=== PATIENT | male | born 1995 | race Caucasian/White ===

== ENCOUNTER 2018-05-22 02:36 | Emergency (ER) | payer MEDICAID, OTHER ==
[~2018-05-22] VITALS: Ht 167.6 cm; Wt 63.6 kg
[~2018-05-22 02:36] MED LIST: CEPH-443 PO; IBUP-1542 PO
[2018-05-22 02:41] VITALS: Ht 167.6 cm; Wt 63.6 kg
[2018-05-22] MEDS ORDERED: SOD CHLORIDE 0.9% 1,000 ML IV STA (03:27)
[2018-05-22] MEDS ORDERED: ONDANSETRON 4 MG INJ IV STA (03:27)
[2018-05-22] MEDS ORDERED: morphine 4 MG/ML VIAL IV STA (03:27)
[2018-05-22] MEDS ORDERED: HYDR-4011 PO (04:53)
[2018-05-22] MEDS ORDERED: ONDA4TAB14 PO (04:53)
--- NOTE | 2018-05-22 05:06 | ERD ---
ER Documentation Chief Complaint Chief Complaint abdominal pain x 30 minutes HPI 23-year-old male patient with no significant past medical history presents to ED complaining of abdominal pain 30 minutes prior to arrival. Patient reports that he has normal daily bowel movements. States that he ate pizza, and this pain exacerbated. Reports that his pain is mainly in the right and left upper quadrant region. Reports that he has never had this pain. She rates his pain a 9 out of 10 describes his pain as sharp. Reports he has some nausea.Denies any chest pain, shortness of breath, wheezing, fever, chills, diarrhea, pain, dy suria, vomiting, constipation. ROS All systems reviewed and are negative except as per history of present illness. Medications Home Meds Active Scripts Ondansetron (Ondansetron Odt) 4 Mg Tab.rapdis, 4 MG PO Q6H PRN for NAUSEA AND/OR VOMITING, #10 TAB Prov:DIAMOND PHOENIX PA-C 05/22/18 Hydrocodone/Acetaminophen ([place] 5-325 Tablet) 1 Each Tablet, 1 TAB PO Q6H PRN for PAIN, #7 TAB Prov:DIAMOND PHOENIX PA-C 05/22/18 Cephalexin* (Keflex*) 500 Mg Capsule, 500 MG PO QID for 10 Days, CAP Prov:KOLTON RAYO NP 02/28/15 Ibuprofen* (Ibuprofen*) 600 Mg Tablet, 600 MG PO Q6H PRN for PA, #30 TAB Prov:KOLTON RAYO NP 02/28/15 Allergies Allergies: Coded Allergies: No Known Allergy (Unverified , 05/22/18) PMhx/Soc History of Surgery: No Anesthesia Reaction: No Hx Neurological Disorder: No Hx Respiratory Disorders: No Hx Cardiac Disorders: No Hx Psychiatric Problems: No Hx Miscellaneous Medical Probl: No Hx Alcohol Use: Yes (Occasional) Hx Substance Use: No Hx Tobacco Use: No Smoking Status: Never smoker FmHx Family History: No diabetes, No coronary disease Physical Exam Vitals Vital Signs Date Temp Pulse Resp B/P (MAP) Pulse Ox O2 O2 Flow FiO2 Time Delivery Rate 05/22/18 97.1 61 18 146/73 100 02:41 (97) Physical Exam Const: [id number], well-nourished. In no acute distress. Head: Atraumatic, normocephalic Eyes: Normal Conjunctiva without injection. No purulent discharge. ENT: Normal external ear, nose. Moist oropharynx without tonsillar exudates. Non-erythematous pharynx. Uvula midline. No drooling. No trismus. Neck: No cervical midline tenderness. Full range of motion. No meningismus. No cervical lymphadenopathy. No JVD. Resp: Clear to auscultation bilaterally. No wheezing, rhonchi, rales, or crackles. No accessory muscle use. No retractions. Cardio: Regular rate and rhythm. No murmurs, rubs or gallops. Abd: Soft, right upper quadrant and left upper quadrant tenderness, non distended. Normal bowel sounds. No palpable masses. No rebound tenderness. No guarding. Negative McBurney's point. Negative psoas sign. Negative obturator sign. Skin: No petechiae or rashes Back: No midline tenderness. No CVA tenderness. Ext: No cyanosis, or edema. Neur: Awake and alert. Normal gait. Normal coordination. Psych: Normal Mood and Affect Result Diagram: 05/22/18 0343 05/22/18 0343 Results 24 hrs Laboratory Tests Test 05/22/18 03:20 05/22/18 03:43 Urine Color YELLOW Urine Clarity CLEAR Urine pH 6.0 Urine Specific [place] 1.019 Urine Ketones NEGATIVE mg/dL Urine Nitrite NEGATIVE mg/dL Urine Bilirubin NEGATIVE mg/dL Urine Urobilinogen NEGATIVE mg/dL Urine Leukocyte Esterase NEGATIVE Kuldip/ul Urine Hemoglobin NEGATIVE mg/dL Urine Glucose NEGATIVE mg/dL Urine Total Protein NEGATIVE mg/dl White Blood Count 9.2 10^3/ul Red Blood Count 5.42 10^6/ul Hemoglobin 16.1 g/dl Hematocrit 46.6 % Mean Corpuscular Volume 86.0 fl Mean Corpuscular Hemoglobin 29.7 pg Mean Corpuscular Hemoglobin Concent 34.5 g/dl Red Cell Distribution Width 13.3 % Platelet Count 199 10^3/UL Mean Platelet Volume 11.5 fl Immature Granulocytes % 0.400 % Neutrophils % 65.5 % Lymphocytes % 24.9 % Monocytes % 7.4 % Eosinophils % 1.4 % Basophils % 0.4 % Nucleated Red Blood Cells % 0.0 /100WBC Immature Granulocytes # 0.040 10^3/ul Neutrophils # 6.0 10^3/ul Lymphocytes # 2.3 10^3/ul Monocytes # 0.7 10^3/ul Eosinophils # 0.1 10^3/ul Basophils # 0.0 10^3/ul Nucleated Red Blood Cells # 0.0 10^3/ul Sodium Level 143 mmol/L Potassium Level 3.7 mmol/L Chloride Level 98 mmol/L Carbon Dioxide Level 33 mmol/L Anion Gap 12 Blood Urea Nitrogen 16 mg/dl Creatinine 0.83 mg/dl Est Glomerular Filtrat Rate mL/min > 60 mL/min Glucose Level 115 mg/dl Calcium Level 9.5 mg/dl Total Bilirubin 0.1 mg/dl Direct Bilirubin 0.00 mg/dl Indirect Bilirubin 0.1 mg/dl Aspartate Amino Transf (AST/SGOT) 141 IU/L Alanine Aminotransferase (ALT/SGPT) 143 IU/L Alkaline Phosphatase 95 IU/L Total Protein 8.3 g/dl Albumin 4.7 g/dl Globulin 3.60 g/dl Albumin/Globulin Ratio 1.30 Lipase 44 U/L Current Medications Medications Dose Sig/Katherine Start Time Status Last (Trade) Ordered Route PRN Stop Time Admin Dose Reason Admin Sodium 1,000 ml @ Q1H STAT 05/22/18 DC 05/22/18 Chloride 1,000 mls/hr IV 03:27 05/22/18 03:34 04:26 Morphine 4 mg ONCE STAT 05/22/18 DC 05/22/18 Sulfate IV 03:27 05/22/18 03:34 (morphine) 03:29 Ondansetron 4 mg ONCE STAT 05/22/18 DC 05/22/18 HCl (Zofran IV 03:27 05/22/18 03:35 Inj) 03:29 Procedures/MDM 23-year-old male patient with no significant past medical history presents to ED complaining of right and left upper quadrant epigastric pain. Patient is afebrile and nontoxic-appearing. Patient's blood pressure is 146/73. Blood Pressure Assessment: Patient's blood pressure was elevated (>120/80) but appears stable without evidence of hypertension emergency or urgency. The patient was counseled about the risks of hypertension and urged to pursue outpatient monitoring and therapy within a week with their primary care physician. Patient was further worked up with CBC, CMP, lipase, UA, gallbladder ultrasound. Patient's pain and symptoms have improved after treatment with 1 L normal saline, 4 mg IV morphine, 4 mg IV Zofran. CBC: No leukocytosis. No e/o of systemic infection. No e/o anemia. CMP: No e/o severe acidosis, alkalosis, renal failure, diabetic ketoacidosis, slight transaminitis noted Lipase within normal limits. Urine: No leukocyte esterase, no nitrites, no hematuria. PROCEDURE: US Abdomen. CLINICAL INDICATION: Abdominal TECHNIQUE: Multiple real-time images were acquired of the patient's abdomen and retroperitoneum utilizing a high resolution transducer. COMPARISON: None FINDINGS: Multiple gallstones. No gallbladder wall thickening or pericholecystic fluid. Common bile duct normal limits in size maximal transverse diameter 3.69 mm. No intrahepatic biliary ductal dilation. Liver mildly enlarged maximal sagittal dimension 19.16 cm. Normal liver parenchymal echogenicity without focal lesions. Pancreas is poorly demonstrated due to overlying bowel gas. Right kidney normal limits size maximal sagittal dimension 10.61 cm. Normal right renal parenchymal echogenicity without calculus mass or hydronephrosis. Normal flow right kidney. No evidence of free fluid in the right upper quadrant of the abdomen. IMPRESSION: 1. Multiple gallstones without gallbladder wall thickening or pericholecystic fluid. 2. No biliary ductal dilation. 3. Unremarkable liver and right kidney. 4. Suboptimal evaluation of the pancreas due to overlying bowel gas. Patient has gallstones. No elevated bilirubin. Slight transaminitis. No biliary ductal dilation. Low suspicion for testicular torsion, gastritis, GERD, peptic ulcer disease, cholecystitis, choledocholithiasis, cholangitis, pancreatitis, appendicitis, bowel obstruction, ileus, volvulus, nephrolithiasis, pyelonephritis, hepatitis, perforated viscus, diverticulitis, abdominal hernia, acute abdomen, mesenteric ischemia or other emergent conditions. No leukocytosis. Diagnosis: Gallstones Discharge medications: Zofran, [place] Follow up with primary care physician in 1-2 days for referral to general surgeon. Instructed patient to return to the ED sooner for any worsening symptoms. Patient's questions were answered. Patient understood and agreed with discharge plan. Patient discharged stable. Departure Diagnosis: Primary Impression: Epigastric pain Condition: Stable Patient Instructions: Treating Gallstones, Biliary Colic With Gallstone (Confirmed) Referrals: [facility] YOU HAVE RECEIVED A MEDICAL SCREENING EXAM AND THE RESULTS INDICATE THAT YOU DO NOT HAVE A CONDITION THAT REQUIRES URGENT TREATMENT IN THE EMERGENCY DEPARTMENT. FURTHER EVALUATION AND TREATMENT OF YOUR CONDITION CAN WAIT UNTIL YOU ARE SEEN IN YOUR DOCTORS OFFICE WITHIN THE NEXT 1-2 DAYS. IT IS YOUR RESPONSIBILITY TO MAKE AN APPOINTMENT FOR FOLOW-UP CARE. IF YOU HAVE A PRIMARY DOCTOR --you should call your primary doctor and schedule an appointment IF YOU DO NOT HAVE A PRIMARY DOCTOR YOU CAN CALL OUR PHYSICIAN REFERRAL HOTLINE AT IF YOU CAN NOT AFFORD TO SEE A PHYSICIAN YOU CAN CHOSE FROM THE FOLLOWING [facility] [address] [facility] [address] [facility] [facility] [address] [facility] [address] [facility] [address] [facility]. [facility] [address] [facility]. [facility] YOU HAVE RECEIVED A MEDICAL SCREENING EXAM AND THE RESULTS INDICATE THAT YOU DO NOT HAVE A CONDITION THAT REQUIRES URGENT TREATMENT IN THE EMERGENCY DEPARTMENT. FURTHER EVALUATION AND TREATMENT OF YOUR CONDITION CAN WAIT UNTIL YOU ARE SEEN IN YOUR DOCTORS OFFICE WITHIN THE NEXT 1-2 DAYS. IT IS YOUR RESPONSIBILITY TO MAKE AN APPOINTMENT FOR FOLOW-UP CARE. IF YOU HAVE A PRIMARY DOCTOR --you should call your primary doctor and schedule and appointment IF YOU DO NOT HAVE A PRIMARY DOCTOR YOU CAN CALL OUR PHYSICIAN REFERRAL HOTLINE AT . IF YOU CAN NOT AFFORD TO SEE A PHYSICIAN YOU CAN CHOSE FROM THE FOLLOWING [facility]: [facility] [address] [place] [address] [facility] [address] [place] [address] [facility] + [facility] [address] [place] [address] [facility] URGENT C[facility]/SPECIALTIES Additional Instructions: Llame al doctor MAANA y leonor triny RILEY PARA DENTRO DE 2-3 CORBIN.Dgale a la secretaria que nosotros le instruimos hacer esta riley.Avise o llame si espinosa condicin se empeora antes de la riley. Regresa aqui si peor o no mejor. La medicina que se le recet puede causarle sueo.NO DEBE MANEJAR NI OPERAR MAQUINARIAS PELIGROSAS mientras esta tomando esta medicina! DIAMOND PHOENIX PA-C May 22, 2018 05:06
[2018-05-22 05:10] VITALS: BP 119/58; PULSE 69; RESP 18
== END 2018-05-22 05:11 | disposition home or self-care (01) ==
LOC: FTE 02:36
DX: R10.13 Epigastric pain (principal)
CPT/HCPCS: 36415; 76705; 80053; 81003; 83690; 85025; 96361; 96374; 96375; J2270; J2405; J7030; Z7502

== ENCOUNTER 2018-10-20 03:00 | Emergency (ER) | payer SELFPAY ==
[~2018-10-20] VITALS: Ht 167.6 cm; Wt 74.1 kg
[~2018-10-20 03:00] MED LIST changes: +HYDR-4011 PO; +ONDA4TAB14 PO
[2018-10-20 03:11] VITALS: Ht 167.6 cm; Wt 74.1 kg
--- NOTE | 2018-10-20 03:57 | ERD ---
ER Documentation Chief Complaint Chief Complaint abdominal pain. denies n/v, hx of gallstones HPI 23-year-old male, with history of gallstones, presents to the emergency department, complaining of acute onset of severe epigastric abdominal pain, that started 1 hour prior to arrival and has been constant, 8/10, associated with nausea but no vomiting. He denies fever or chills. ROS All systems reviewed and are negative except as per history of present illness. Medications Home Meds Active Scripts Ibuprofen* (Motrin*) 400 Mg Tab, 400 MG PO Q6H PRN for PAIN AND OR ELEVATED T EMP, #20 TAB Prov:AHMET NICOLAS MD 10/20/18 Acetaminophen* (Tylenol*) 325 Mg Tablet, 2 TAB PO Q6 PRN for PAIN AND OR ELEVATED TEMP, #20 TAB Prov:AHMET NICOLAS MD 10/20/18 Ranitidine Hcl* (Zantac*) 150 Mg Tablet, 150 MG PO BID PRN for EPIGASTRIC PAIN, #30 TAB Prov:AHMET NICOLAS MD 10/20/18 Ondansetron (Ondansetron Odt) 4 Mg Tab.rapdis, 4 MG PO Q6H PRN for NAUSEA AND/OR VOMITING, #10 TAB Prov:DIAMOND PHOENIX PA-C 05/22/18 Hydrocodone/Acetaminophen ([place] 5-325 Tablet) 1 Each Tablet, 1 TAB PO Q6H PRN for PAIN, #7 TAB Prov:DIAMOND PHOENIX PA-C 05/22/18 Cephalexin* (Keflex*) 500 Mg Capsule, 500 MG PO QID for 10 Days, CAP Prov:KOLTON RAYO NP 02/28/15 Ibuprofen* (Ibuprofen*) 600 Mg Tablet, 600 MG PO Q6H PRN for PA, #30 TAB Prov:KOLTON RAYO NP 02/28/15 Allergies Allergies: Coded Allergies: No Known Allergy (Unverified , 05/22/18) PMhx/Soc History of Surgery: No Anesthesia Reaction: No Hx Neurological Disorder: No Hx Respiratory Disorders: No Hx Cardiac Disorders: No Hx Psychiatric Problems: No Hx Miscellaneous Medical Probl: No Hx Alcohol Use: Yes (Occasional) Hx Substance Use: No Hx Tobacco Use: No FmHx Family History: No diabetes, No coronary disease Physical Exam Vitals Vital Signs Date Temp Pulse Resp B/P (MAP) Pulse Ox O2 O2 Flow FiO2 Time Delivery Rate 10/20/18 97.9 71 22 130/87 98 03:11 (101) Physical Exam Patient alert, oriented, vital signs stable. HEAD: Normocephalic, atraumatic. EYES: PERRLA, EOMI, Sclera and conjunctiva appear normal. NOSE: Clear and patent nostrils. EARS: Canals clear, tympanic membranes WNL. MOUTH: normal lips and tongue, no oral lesions. THROAT: Normal oropharynx, no tonsillar exudates. NECK: Supple, No lymphadenopathy. Full ROM without pain or tenderness. HEART: RRR, no rubs, murmurs, clicks or gallops. LUNGS: Clear to auscultation. ABDOMEN: Soft, tender in the right upper quadrant,?Urbano sign. EXTREMITIES: No edema bilaterally. BACK: Full ROM, no deformity, normal back exam NEURO: Cranial nerves grossly intact, no motor or sensory deficit SKIN: No rashes, no petechia. Result Diagram: 10/20/18 0445 10/20/18 0445 Results 24 hrs Laboratory Tests Test 10/20/18 04:17 10/20/18 04:45 Urine Color YELLOW Urine Clarity CLEAR Urine pH 5.0 Urine Specific [place] 1.017 Urine Ketones NEGATIVE mg/dL Urine Nitrite NEGATIVE mg/dL Urine Bilirubin NEGATIVE mg/dL Urine Urobilinogen NEGATIVE mg/dL Urine Leukocyte Esterase NEGATIVE Kuldip/ul Urine Hemoglobin NEGATIVE mg/dL Urine Glucose NEGATIVE mg/dL Urine Total Protein NEGATIVE mg/dl White Blood Count 9.8 10^3/ul Red Blood Count 4.91 10^6/ul Hemoglobin 14.3 g/dl Hematocrit 41.8 % Mean Corpuscular Volume 85.1 fl Mean Corpuscular Hemoglobin 29.1 pg Mean Corpuscular Hemoglobin Concent 34.2 g/dl Red Cell Distribution Width 13.0 % Platelet Count 178 10^3/UL Mean Platelet Volume 11.0 fl Immature Granulocytes % 0.400 % Neutrophils % 78.5 % Lymphocytes % 13.5 % Monocytes % 6.4 % Eosinophils % 0.8 % Basophils % 0.4 % Nucleated Red Blood Cells % 0.0 /100WBC Immature Granulocytes # 0.040 10^3/ul Neutrophils # 7.7 10^3/ul Lymphocytes # 1.3 10^3/ul Monocytes # 0.6 10^3/ul Eosinophils # 0.1 10^3/ul Basophils # 0.0 10^3/ul Nucleated Red Blood Cells # 0.0 10^3/ul Sodium Level 141 mmol/L Potassium Level 3.7 mmol/L Chloride Level 103 mmol/L Carbon Dioxide Level 27 mmol/L Anion Gap 11 Blood Urea Nitrogen 12 mg/dl Creatinine 0.80 mg/dl Est Glomerular Filtrat Rate mL/min > 60 mL/min Glucose Level 99 mg/dl Calcium Level 9.4 mg/dl Total Bilirubin 0.5 mg/dl Direct Bilirubin 0.00 mg/dl Indirect Bilirubin 0.5 mg/dl Aspartate Amino Transf (AST/SGOT) 249 IU/L Alanine Aminotransferase (ALT/SGPT) 207 IU/L Alkaline Phosphatase 91 IU/L Total Protein 7.0 g/dl Albumin 4.2 g/dl Globulin 2.80 g/dl Albumin/Globulin Ratio 1.50 Lipase 32 U/L Current Medications Medications Dose Sig/Katherine Start Time Status Last (Trade) Ordered Route PRN Stop Time Admin Dose Reason Admin Sodium 500 ml @ Q1H STAT 10/20/18 DC 10/20/18 Chloride 500 mls/hr IV 03:58 10/20/18 04:47 04:57 Morphine 2 mg ONCE STAT 10/20/18 DC 10/20/18 Sulfate IV 03:58 10/20/18 04:47 (morphine) 04:31 Ondansetron 4 mg ONCE STAT 10/20/18 DC 10/20/18 HCl (Zofran IV 03:58 10/20/18 04:46 Inj) 04:31 Procedures/MDM Vital signs stable. Differential diagnosis include but not limited to: UTI, colitis, gastroenteritis, kidney stones, irritable bowel syndrome, inflammatory bowel syndrome, malabsorption syndrome, cholelithiasis, food intolerance, medic ation side effect, pancreatitis, diverticulitis, bowel obstruction. Physical examination and clinical presentation consistent most likely with biliary colic, without evidence of cholecystitis or choledocholithiasis. During the ED course the patient remained stable, no new complaints. The patient received treatment with IV fluids and IV medications presenting overall improvement of the symptoms. Results and clinical impression discussed with the patient who agrees with management. The patient is stable to be treated outpatient and will be discharged home; some side effects of prescribed medications (headache, rash, nausea, vomiting, diarrhea, drowsiness, habituation, bleeding, hypertension, interactions with other medications) were reviewed. The patient was informed that the evaluation in the emergency department has been done to rule out an acute emergency, therefore, chronic conditions like malignancy or other diseases have not been evaluated; therefore, the patient was instructed to follow up with the primary care provider in the next 48h. If symptoms persist, worsen or new symptoms develop, then patient should return to the ED immediately. Instructions explained and given directly by me to the patient with acknowledgment and demonstrated understanding. Disclaimer: Inadvertent spelling and grammatical errors are likely due to EHR/dictation software use and do not reflect on the overall quality of patient care. Also, please note that the electronic time recorded on this note does not necessarily reflect the actual time of the patient encounter. Departure Diagnosis: Primary Impression: Biliary colic Additional Impression: Gallstones Condition: Stable Additional Instructions: Thank you very much for allowing us to participate in your care. Your health and safety is our top priority at [facility]. The evaluation in the emergency department has been done to rule out an acute emergency. chronic conditions like malignancy or other diseases have not been evaluated; therefore, you need to follow up with a primary care provider in the next 48h. If symptoms persist, worsen or new symptoms develop, then patient sh ould return to the ED immediately. Call your primary care doctor TOMORROW for an appointment during the next 2-4 days and bring all the information provided. Have prescriptions filled and follow precisely the directions on the label. If the symptoms get worse and your provider is unavailable, return to the Emergency Department immediately. AHMET NICOLAS MD Oct 20, 2018 03:57
[2018-10-20] MEDS ORDERED: morphine 2 MG INJ IV STA (03:58)
[2018-10-20] MEDS ORDERED: ONDANSETRON 4 MG INJ IV STA (03:58)
[2018-10-20] MEDS ORDERED: SOD CHLORIDE 0.9% 500 ML IV STA (03:58)
[2018-10-20] MEDS ORDERED: IBUP-1561 PO (05:42)
[2018-10-20] MEDS ORDERED: RANI150T35 PO (05:42)
[2018-10-20] MEDS ORDERED: ACET325T33 PO (05:42)
[2018-10-20 05:49] VITALS: BP 116/61; PULSE 73; RESP 16
== END 2018-10-20 06:07 | disposition home or self-care (01) ==
LOC: FTE 03:00
DX: K80.70 Calculus of gallbladder and bile duct without cholecystitis without obstruction (principal)
CPT/HCPCS: 36415; 76705; 80053; 81003; 83690; 85025; 96374; 96375; 99285; J2270; J2405; J7040